=== PATIENT | female | born 1980 | race African-American/Black ===

== ENCOUNTER → 2017-01-10 | Outpatient (CLI) | payer OTHER | LOC: RAD 16:01 | PROVIDERS: ATTEND Student in an Organized Health Care Education/Training Program | DX: K59.09 Other constipation (principal); R10.9 Unspecified abdominal pain | CPT/HCPCS: 74000 ==

== ENCOUNTER 2017-03-28 09:34 | Emergency (ER) | payer BC, OTHER ==
--- NOTE | 2017-03-28 10:13 | ER Document Report ---
ED General - General Mode of Arrival: Ambulatory Information source: Patient TRAVEL OUTSIDE OF THE U.[place]. IN LAST 30 DAYS: No - HPI Onset: This morning - Refer to HPI notes Similar symptoms previously: No Recently seen / treated by doctor: No <HENNY SANTO - Last Filed: 03/28/17 10:19> <YANELIS SEXTON - Last Filed: 03/28/17 15:23> - General Chief Complaint: Flank Pain Stated Complaint: FLANK PAIN Time Seen by Provider: 03/28/17 09:42 Notes: Patient is a 37-year-old female presenting to the emergency department for left flank pain. Patient states her pain was onset at 7:30 this morning. Patient states that her pain "feels like a contraction but it is not lighting up." Patient also describes it as sharp pain that came on suddenly. Patient denies any cramping. Patient has a history of gastric sleeve. Patient denies any history of kidney stones. Patient's last menstrual period was 03/16/2017. ( HENNY SANTO) - Related Data Allergies/Adverse Reactions: Penicillins Allergy (Mild, Verified 02/12/14 16:03) Hives Past Medical History - General Information source: Patient - Social History Smoking Status: Never Smoker Cigarette use (# per day): No Chew tobacco use (# tins/day): No Frequency of alcohol use: None Drug Abuse: None Family History: None Patient has suicidal ideation: No Patient has homicidal ideation: No - Medical History Medical History: Negative Past Surgical History: Reports: Hx Abdominal Surgery - gastric sleeve 09/18/2016 - Immunizations Hx Diphtheria, Pertussis, Tetanus Vaccination: Yes <HENNY SANTO - Last Filed: 03/28/17 10:19> Review of Systems - Review of Systems Constitutional: No symptoms reported EENT: No symptoms reported Cardiovascular: No symptoms reported Respiratory: No symptoms reported Gastrointestinal: No symptoms reported Genitourinary: See HPI, Flank pain Female Genitourinary: No symptoms reported Musculoskeletal: See HPI Skin: No symptoms reported Hematologic/Lymphatic: No symptoms reported Neurological/Psychological: No symptoms reported -: Yes All other systems reviewed and negative <HENNY SANTO - Last Filed: 03/28/17 10:19> Physical Exam - Vital signs Interpretation: Normal - General General appearance: Appears well, Alert In distress: Mild - HEENT Head: Normocephalic, Atraumatic Eyes: Normal Pupils: PERRL Mucous membranes: Moist - Respiratory Respiratory status: No respiratory distress Chest status: Tender - left rib pain tenderness to palpation Breath sounds: Normal Chest palpation: Normal - Cardiovascular Rhythm: Regular Heart sounds: Normal auscultation Murmur: No - Abdominal Inspection: Normal Distension: No distension Bowel sounds: Normal Tenderness: Nontender Organomegaly: No organomegaly - Back Back: Tender - left lateral flank tenderness to palpation, Other - no CVA percussion tenderness - Extremities General upper extremity: Normal inspection, Normal ROM, Normal strength General lower extremity: Normal inspection, Normal ROM, Normal strength - Neurological Neuro grossly intact: Yes Cognition: Normal Orientation: AAOx4 [place] Coma Scale Eye Opening: Spontaneous [place] Coma Scale Verbal: Oriented [place] Coma Scale Motor: Obeys Commands [place] Coma Scale Total: 15 Speech: Normal - Psychological Associated symptoms: Normal affect, Normal mood - Skin Skin Temperature: Warm Skin Moisture: Dry <HENNY SANTO - Last Filed: 03/28/17 10:19> <YANELIS SEXTON - Last Filed: 03/28/17 15:23> - Vital signs Vitals: Temp Pulse Resp BP Pulse Ox 97.5 F 69 16 108/77 96 03/28/17 09:38 03/28/17 09:38 03/28/17 09:38 03/28/17 09:38 03/28/17 09:38 Course <HENNY SANTO - Last Filed: 03/28/17 10:19> - Laboratory Result Diagrams: 03/28/17 09:44 03/28/17 09:44 - Diagnostic Test Radiology reviewed: Image reviewed, Reports reviewed - Scan is read as possible mesenteric adenitis, no other abnormalities. <YANELIS SEXTON - Last Filed: 03/28/17 15:23> - Re-evaluation Re-evalutation: 03/28/17 15:19 The patient was seen here on 02/12/2014 with similar left flank pain and hematuria and a negative CT scan. Discussing the possibilities of the ongoing hematuria, the patient now thinks her last period was February 14, 2017 not March 16, 2017. Her test was negative. She does not remember being advised to follow-up with Dr. Hines the urologist, when she was seen here 3 years ago. She never did follow-up. (YANELIS SEXTON) - Vital Signs Vital signs: Temp Pulse Resp BP Pulse Ox 97.5 F 69 16 108/77 96 03/28/17 09:38 03/28/17 09:38 03/28/17 09:38 03/28/17 09:38 03/28/17 09:38 - Laboratory Laboratory results interpreted by me: 03/28/17 03/28/17 03/28/17 09:44 09:44 12:15 Hgb 11.1 L Hct 35.1 L MCHC 31.5 L Chloride 109 H Albumin 3.3 L Urine Ketones 80 H Urine Blood LARGE H Discharge <HENNY SANTO - Last Filed: 03/28/17 10:19> <YANELIS SEXTON - Last Filed: 03/28/17 15:23> - Discharge Clinical Impression: Flank pain Condition: Stable Disposition: HOME, SELF-CARE Additional Instructions: Flank Pain: We weren't able to prove an exact cause for your flank pain. Pain in the flank can be caused by a muscle strain or spasm. Sometimes a kidney stone causes pain, but can't be found on our tests. Infection in the kidney should be evident on a urine test. Early shingles can occasionally cause flank pain, without the rash that proves the diagnosis. On rare occasions, disease of the pancreas, aorta, spleen, or colon can create pain in the flank. At this time, there's no evidence of a dangerous condition, and it seems safe for you to be at home. If the pain goes away and does not come back, no further testing will be needed. If pain persists, or becomes more severe, we may need to repeat some tests or order additional new testing. Blood in the urine, urgency to urinate frequently, and pain that radiates to the groin can indicate a kidney stone. Fever may mean that the pain is due to infection, either of the kidney or the colon (diverticulitis). If your pain is early shingles, you should develop an eruption of blisters in the painful area within a few days. Call the doctor or return if you have pain that is spreading or becoming more severe, pain that does not resolve with time, fever, or any other new symptoms. //////////////////////////////////////////////////////////////////////////////// //////////////////////////////////////////////////////////// Your evaluation today suggests your pain is most likely musculoskeletal in origin Continue urine may likely be due to you regarding your period. Take Tylenol and Aleve or Motrin for pain as needed. Follow-up with your primary care provider to recheck your urine to be certain there is no blood in the urine. RETURN TO THE EMERGENCY ROOM IF ANY NEW OR WORSENING SYMPTOMS. Referrals: RADHA WALLIS, [Primary Care Provider] - Follow up as needed Scribe Attestation: 03/28/17 15:23 I personally performed the services described in the documentation, reviewed and edited the documentation which was dictated to the scribe in my presence, and it accurately records my words and actions. (YANELIS SEXTON) Scribe Documentation - Scribe Written by Sherri:: Sherri Washburn 03/28/17 10:28 acting as scribe for :: Chava <HENNY SANTO - Last Filed: 03/28/17 10:19>
[2017-03-28 11:00] LABS: ABSOLUTE EOSINOPHILS # (AUTO) 0.1 10^3/uL (0.0-0.6); ABSOLUTE LYMPHOCYTES (AUTO) 1.9 10^3/uL (0.5-4.7); ABSOLUTE MONOCYTES (AUTO) 0.5 10^3/uL (0.1-1.4); ABSOLUTE NEUT (AUTO) 6.2 10^3/uL (1.7-8.2); BASOPHILS % (AUTO) 0.4 % (0-2); EOSINOPHILS % (AUTO) 1.2 % (0-6); HEMATOCRIT 35.1 % (36.0-47.0); HEMOGLOBIN 11.1 g/dL (12.0-15.5); HGB HCT DIFFERENCE -1.8; LYMPHOCYTES % (AUTO) 22.2 % (13-45); MEAN CORPUSCULAR HEMOGLOBIN 28.2 pg (27.0-33.4); MEAN CORPUSCULAR HGB CONC 31.5 g/dL (32.0-36.0); MEAN CORPUSCULAR VOLUME 89 fl (80-97); MONOCYTES % (AUTO) 5.4 % (3-13); RED BLOOD COUNT 3.93 10^6/uL (3.72-5.28); SEGMENTED NEUTROPHILS % (AUTO) 70.8 % (42-78); WHITE BLOOD COUNT 8.7 10^3/uL (4.0-10.5)
[2017-03-28 11:16] LABS: ALANINE AMINOTRANSFERASE 26 U/L (9-52); ALBUMIN 3.3 g/dL (3.5-5.0); ALKALINE PHOSPHATASE 64 U/L (38-126); ANION GAP 8 (5-19); ASPARTATE AMINO TRANSFERASE 17 U/L (14-36); BILIRUBIN,DIRECT 0.3 mg/dL (0.0-0.4); BILIRUBIN,TOTAL 0.8 mg/dL (0.2-1.3); BLOOD UREA NITROGEN 13 mg/dL (7-20); CALCIUM 9.6 mg/dL (8.4-10.2); CARBON DIOXIDE 23 mmol/L (22-30); CHLORIDE 109 mmol/L (98-107); CREATININE RESULT 0.64 mg/dL (0.52-1.25); GLUCOSE 108 mg/dL (75-110); POTASSIUM 3.9 mmol/L (3.6-5.0); SODIUM 139.5 mmol/L (137-145); TOTAL PROTEIN 6.4 g/dL (6.3-8.2)
[2017-03-28] MEDS ORDERED: NORMAL SALINE 1000 ML 1,000 ML IV ONE (11:21)
[2017-03-28] MEDS ORDERED: KETOROLAC TROMETHAMINE INJ/PF 30 MG/1 ML SDV IV ONE (12:21)
[2017-03-28] MEDS ORDERED: FAMOTIDINE INJ/PF 20 MG/2 ML SDV IV ONE (12:21)
[2017-03-28 13:01] LABS: APPEARANCE,URINE SLIGHTLY-CLOUDY; BILIRUBIN,URINE NEGATIVE (NEGATIVE); GLUCOSE, URINE NEGATIVE (NEGATIVE); KETONES,URINE 80 mg/dL (NEGATIVE); LEUKOCYTE ESTERASE,URINE NEGATIVE (NEGATIVE); NITRITE,URINE NEGATIVE (NEGATIVE); PROTEIN,URINE NEGATIVE (NEGATIVE); URINE SPECIFIC GRAVITY 1.014; UROBILINOGEN,URINE NEGATIVE mg/dL (<2.0)
--- NOTE | 2017-03-28 14:50 | RADIOLOGY REPORT (SQ) ---
EXAM DESCRIPTION: CT LTD RENAL STONE PROTOCOL ON COMPLETED DATE/TIME: 03/28/2017 1:59 pm REASON FOR STUDY: LEFT FLANK PAIN, HEMATURIA COMPARISON: None. TECHNIQUE: CT scan of the abdomen and pelvis performed without intravenous or oral contrast. Images reviewed with lung, soft tissue, and bone windows. Reconstructed coronal and sagittal MPR images revi ewed. All images stored on PACS. All CT scanners at this facility use dose modulation, iterative reconstruction, and/or weight based d osing when appropriate to reduce radiation dose to as low as reasonably achievable (ALARA). [facility]: Dose Right [facility]: CareDose [facility]: Dose Right [facility]: Teradose 4D [facility]: DTVCast RADIATION DOSE: 11.33mGy. LIMITATIONS: None. FINDINGS: LOWER CHEST: No significant findings. No nodules or infiltrates. NON-CONTRASTED LIVER, SPLEEN, ADRENALS: Evaluation limited by lack of IV contrast. No identified sign ificant masses. PANCREAS: No masses. No peripancreatic inflammatory changes. GALLBLADDER: No identified stones by CT criteria. No inflammatory changes to suggest cholecystitis. RIGHT KIDNEY AND URETER: No suspicious masses. Assessment limited by lack of IV contrast. No signif icant calcifications. No hydronephrosis or hydroureter. LEFT KIDNEY AND URETER: No suspicious masses. Assessment limited by lack of IV contrast. No signifi cant calcifications. No hydronephrosis or hydroureter. AORTA AND RETROPERITONEUM: No aneurysm. Several retroperitoneal and mesenteric lymph nodes are prese nt. These are generally small PE BOWEL AND PERITONEAL CAVITY: No obvious masses or inflammatory changes. No free fluid. APPENDIX: Not identified. PELVIS, BLADDER, AND ABDOMINAL WALL:Urinary bladder and uterus are normal. There is no adnexal mass or fluid collection. BONES: No significant findings. OTHER: No other significant finding. IMPRESSION: 1. No urinary pathology is appreciated. 2. Possible mesenteric adenitis. TECHNICAL DOCUMENTATION: JOB ID: [id number] Quality ID # [id number]: Final reports with documentation of one or more dose reduction techniques (e.g., Au tomated exposure control, adjustment of the mA and/or kV according to patient size, use of iterative reconstruction technique) 2010 [employer]- All Rights Reserved
[2017-03-28 15:36] VITALS: BP 106/62
== END 2017-03-28 15:30 | disposition home or self-care (01) ==
LOC: ER 09:34
DX: R10.9 Unspecified abdominal pain (principal); R31.9 Hematuria, unspecified; Z88.0 Allergy status to penicillin
CPT/HCPCS: 99284; 96361; 96374; 96375; 36415; 84703; 85025; 80053; 81001; 76380; J1885; J7030; S0028

== ENCOUNTER 2017-03-31 11:57 | Emergency (ER) | payer BC ==
[2017-03-31] MEDS ORDERED: KETOROLAC TROMETHAMINE INJ/PF 30 MG/1 ML SDV IV ONE (12:13)
[2017-03-31] MEDS ORDERED: NORMAL SALINE 1000 ML 1,000 ML IV ONE ×2 (12:13→17:57)
--- NOTE | 2017-03-31 12:15 | ER Document Report ---
ED Medical Screen (RME) - General Chief Complaint: Flank Pain Stated Complaint: Left flank pain Time Seen by Provider: 03/31/17 12:07 Mode of Arrival: Wheelchair Information source: Patient TRAVEL OUTSIDE OF THE [place] IN LAST 30 DAYS: No - HPI Patient complains to provider of: Left flank pain Onset: Other - pt seen here 3 days ago for same issue with neg w/u at that time (including CT)- states pain has recurred. - Related Data Allergies/Adverse Reactions: Penicillins Allergy (Mild, Verified 03/31/17 12:02) Hives Past Medical History - Social History Chew tobacco use (# tins/day): No Frequency of alcohol use: None Drug Abuse: None Renal/ Medical History: Denies: Hx Peritoneal Dialysis Past Surgical History: Reports: Hx Abdominal Surgery - gastric sleeve 09/18/2016 - Immunizations Hx Diphtheria, Pertussis, Tetanus Vaccination: Yes Physical Exam - Vital signs Vitals: Temp Pulse Resp BP Pulse Ox 98.1 F 63 16 141/84 H 100 03/31/17 12:02 03/31/17 12:02 03/31/17 12:02 03/31/17 12:02 03/31/17 12:02 Course - Vital Signs Vital signs: Temp Pulse Resp BP Pulse Ox 98.1 F 63 16 141/84 H 100 03/31/17 12:02 03/31/17 12:02 03/31/17 12:02 03/31/17 12:02 03/31/17 12:02
[2017-03-31 13:01] LABS: ABSOLUTE BASOPHILS # (AUTO) 0.1 10^3/uL (0.0-0.2); ABSOLUTE LYMPHOCYTES (AUTO) 1.4 10^3/uL (0.5-4.7); ABSOLUTE MONOCYTES (AUTO) 0.4 10^3/uL (0.1-1.4); ABSOLUTE NEUT (AUTO) 5.4 10^3/uL (1.7-8.2); BASOPHILS % (AUTO) 1.2 % (0-2); EOSINOPHILS % (AUTO) 0.7 % (0-6); HEMATOCRIT 39.2 % (36.0-47.0); HEMOGLOBIN 12.6 g/dL (12.0-15.5); HGB HCT DIFFERENCE -1.4; LYMPHOCYTES % (AUTO) 19.3 % (13-45); MEAN CORPUSCULAR HEMOGLOBIN 28.7 pg (27.0-33.4); MEAN CORPUSCULAR HGB CONC 32.2 g/dL (32.0-36.0); MEAN CORPUSCULAR VOLUME 89 fl (80-97); MONOCYTES % (AUTO) 5.6 % (3-13); RED BLOOD COUNT 4.39 10^6/uL (3.72-5.28); RED CELL DISTRIBUTION WIDTH 13.1 % (11.5-14.0); SEGMENTED NEUTROPHILS % (AUTO) 73.2 % (42-78); WHITE BLOOD COUNT 7.3 10^3/uL (4.0-10.5)
[2017-03-31 13:41] LABS: ALANINE AMINOTRANSFERASE 23 U/L (9-52); ALKALINE PHOSPHATASE 65 U/L (38-126); ANION GAP 11 (5-19); ASPARTATE AMINO TRANSFERASE 22 U/L (14-36); BILIRUBIN,DIRECT 0.2 mg/dL (0.0-0.4); BLOOD UREA NITROGEN 11 mg/dL (7-20); CALCIUM 9.6 mg/dL (8.4-10.2); CARBON DIOXIDE 22 mmol/L (22-30); CHLORIDE 103 mmol/L (98-107); CREATININE RESULT 0.79 mg/dL (0.52-1.25); GLUCOSE 87 mg/dL (75-110); LIPASE 89.9 U/L (23-300); POTASSIUM 4.2 mmol/L (3.6-5.0); SODIUM 136.3 mmol/L (137-145); TOTAL PROTEIN 7.2 g/dL (6.3-8.2)
[2017-03-31] MEDS ORDERED: HYDROCODONE/ACETAMINOPHEN 5-325 MG TABLET PO ONE ×2 (15:50→20:19)
--- NOTE | 2017-03-31 15:52 | ER Document Report ---
ED GI/ - General Mode of Arrival: Wheelchair Information source: Patient TRAVEL OUTSIDE OF THE [place] IN LAST 30 DAYS: No <JO ARRIOLA - Last Filed: 03/31/17 19:22> <DANYELLE CAPPS - Last Filed: 03/31/17 20:23> - General Chief Complaint: Flank Pain Stated Complaint: RIGHT SIDE FLANK PAIN Time Seen by Provider: 03/31/17 12:07 Notes: Patient is a 37-year-old female who presents to the ER today for left flank pain radiating around her left side. He was here on the first, 3 days ago and had a CAT scan of the abdomen and pelvis as well as a KUB x-ray performed which did not note any acute pathology including a kidney stone. She does not have a history of kidney stones. She denies any dysuria, hematuria, nausea, vomiting, diarrhea. (JO ARRIOLA) - Related Data Allergies/Adverse Reactions: Penicillins Allergy (Mild, Verified 03/31/17 12:02) Hives Past Medical History - General Information source: Patient - Social History Smoking Status: Never Smoker Chew tobacco use (# tins/day): No Frequency of alcohol use: None Drug Abuse: None Family History: None Patient has suicidal ideation: No Patient has homicidal ideation: No Renal/ Medical History: Denies: Hx Peritoneal Dialysis Past Surgical History: Reports: Hx Abdominal Surgery - gastric sleeve 09/18/2016 - Immunizations Hx Diphtheria, Pertussis, Tetanus Vaccination: Yes <JO ARRIOLA - Last Filed: 03/31/17 19:22> Review of Systems - Review of Systems Constitutional: No symptoms reported EENT: No symptoms reported Cardiovascular: No symptoms reported Respiratory: No symptoms reported Gastrointestinal: No symptoms reported Genitourinary: See HPI Female Genitourinary: No symptoms reported Musculoskeletal: No symptoms reported Skin: No symptoms reported Hematologic/Lymphatic: No symptoms reported Neurological/Psychological: No symptoms reported <JO ARRIOLA - Last Filed: 03/31/17 19:22> Physical Exam <JO ARRIOLA - Last Filed: 03/31/17 19:22> <DANYELLE CAPPS - Last Filed: 03/31/17 20:23> - Vital signs Vitals: Temp Pulse Resp BP Pulse Ox 98.1 F 63 16 141/84 H 100 06/04/17 12:02 03/31/17 12:02 03/31/17 12:02 03/31/17 12:02 03/31/17 12:02 - Notes Notes: PHYSICAL EXAMINATION: GENERAL: uncomfortable, but in no acute distress. HEAD: Atraumatic, normocephalic. EYES: Pupils equal round and reactive to light, extraocular movements intact, sclera anicteric, conjunctiva are normal. NECK: Normal range of motion, supple without lymphadenopathy LUNGS: CTAB and equal. No wheezes rales or rhonchi. HEART: Regular rate and rhythm without murmurs ABDOMEN: Soft, left sided tenderness. No guarding, no rebound BACK: no vertebral tenderness, normal ROM GI/: left CVA tenderness EXTREMITIES: Normal range of motion, no pitting edema. No cyanosis. NEUROLOGICAL: Cranial nerves grossly intact. Normal sensory/motor exams. PSYCH: Normal mood, normal affect. SKIN: Warm, Dry, normal turgor, no rashes or lesions noted (JO ARRIOLA) Course - Laboratory Result Diagrams: 03/31/17 12:43 03/31/17 12:43 <JO ARRIOLA - Last Filed: 03/31/17 19:22> - Laboratory Result Diagrams: 03/31/17 12:43 03/31/17 12:43 <DANYELLE CAPPS - Last Filed: 03/31/17 20:23> - Re-evaluation Re-evalutation: 03/31/17 19:17 pt has blood in her urinalysis both today and 3 days ago. 03/31/17 19:23 care has been handed over to SHIRIN Ace (JO ARRIOLA) 03/31/17 20:14 renal ultrasound is negative, will refer to jess theodore her PCP and urologist. test is negative. (DANYELLE CAPPS) - Vital Signs Vital signs: Temp Pulse Resp BP Pulse Ox 98.1 F 63 16 141/84 H 100 03/31/17 12:02 03/31/17 12:02 03/31/17 12:02 03/31/17 12:02 03/31/17 12:02 - Laboratory Laboratory results interpreted by me: 03/31/17 03/31/17 12:43 16:26 Sodium 136.3 L Urine Ketones 80 H Urine Blood MODERATE H Discharge <HERBERTHSOLOMONJO - Last Filed: 03/31/17 19:22> <JEFRYCAMERONDANYELLE - Last Filed: 03/31/17 20:23> - Discharge Clinical Impression: left flank pain, Microscopic hematuria Condition: Good Disposition: HOME, SELF-CARE Instructions: Oral Narcotic Medication ([facility]), Toradol Injection ([facility]), Flank Pain ([facility]), Hematuria ([facility]) Additional Instructions: warm compress see urologist for follow up see jess theodore for follow up to er if worse Prescriptions: Hydrocodone Bit/Acetaminophen [Hydrocodon-Acetaminophen 5-325] 1 each PO Q4HP PRN #15 tablet PRN Reason: Forms: Return to Work Referrals: JESS WALLIS DO [Primary Care Provider] - Follow up as needed EVIE HENNING MD [CIGAR BINDER] - Follow up as needed
[2017-03-31 17:23] LABS: APPEARANCE,URINE SLIGHTLY-CLOUDY; BILIRUBIN,URINE NEGATIVE (NEGATIVE); GLUCOSE, URINE NEGATIVE (NEGATIVE); KETONES,URINE 80 mg/dL (NEGATIVE); LEUKOCYTE ESTERASE,URINE NEGATIVE (NEGATIVE); NITRITE,URINE NEGATIVE (NEGATIVE); PROTEIN,URINE NEGATIVE (NEGATIVE); URINE SPECIFIC GRAVITY 1.023; UROBILINOGEN,URINE NEGATIVE mg/dL (<2.0)
--- NOTE | 2017-03-31 19:40 | RADIOLOGY REPORT (SQ) ---
EXAM DESCRIPTION: U/S RETROPERITON (RENAL/AORTA) COMPLETED DATE/TIME: 03/31/2017 6:54 pm REASON FOR STUDY: left flank pain, side pain, hematuria COMPARISON: CT 03/28/2017. TECHNIQUE: Dynamic and static grayscale images acquired of the kidneys and bladder and recorded on P ACS. Additional selected color Doppler and spectral images recorded. LIMITATIONS: None. FINDINGS: RIGHT KIDNEY: Normal size. Normal echogenicity. No solid or suspicious masses. No hydronep hrosis. No calcifications. LEFT KIDNEY: Normal size. Normal echogenicity. No solid or suspicious masses. No hydronephrosis. No calcifications. BLADDER: No masses. OTHER FINDINGS: No other significant finding. IMPRESSION: NORMAL RENAL AND BLADDER ULTRASOUND. TECHNICAL DOCUMENTATION: JOB ID: [id number] [employer]- All Rights Reserved
[2017-03-31 20:50] VITALS: BP 122/81
== END 2017-03-31 20:50 | disposition home or self-care (01) ==
LOC: ER 11:57
DX: R10.9 Unspecified abdominal pain (principal); R31.29 Other microscopic hematuria; Z87.442 Personal history of urinary calculi; Z88.0 Allergy status to penicillin
CPT/HCPCS: 99284; 96361; 96374; 36415; 87086; 83690; 84703; 85025; 80053; 81001; 76770; J1885; J7030

== ENCOUNTER 2017-07-15 10:29 | Emergency (ER) | payer BC, OTHER ==
--- NOTE | 2017-07-15 11:41 | ER Document Report ---
ED General - General Chief Complaint: Low Blood Pressure Stated Complaint: BLOOD PRESSURE PROBLEM Time Seen by Provider: 07/15/17 11:37 Mode of Arrival: Ambulatory Information source: Patient Notes: 37-year-old female presents with concerns for low blood pressure. Patient notes her blood pressure today was was in the 90s systolic, has been in the 80s over the past week and the patient had one episode of syncope, she notes she was seen by her primary care physician and lab work performed on Saturday. Patient denies any symptoms at all besides feeling lightheaded when she stands up. Patient today says the symptoms have improved she otherwise feels well TRAVEL OUTSIDE OF THE [place] IN LAST 30 DAYS: No - HPI Onset: Last week Onset/Duration: Intermittent Quality of pain: No pain Severity: Mild Pain Level: Denies Associated symptoms: Other Exacerbated by: Standing Relieved by: Sitting Similar symptoms previously: Yes Recently seen / treated by doctor: Yes - Related Data Allergies/Adverse Reactions: Penicillins Allergy (Mild, Verified 03/31/17 12:02) Hives NASID Allergy (Uncoded 07/15/17 10:52) Past Medical History - Social History Smoking Status: Never Smoker Cigarette use (# per day): No Chew tobacco use (# tins/day): No Smoking Education Provided: No Frequency of alcohol use: None Drug Abuse: None Family History: None Patient has suicidal ideation: No Renal/ Medical History: Denies: Hx Peritoneal Dialysis Past Surgical History: Reports: Hx Abdominal Surgery - gastric sleeve 09/18/2016 - Immunizations Hx Diphtheria, Pertussis, Tetanus Vaccination: Yes Review of Systems - Review of Systems Notes: REVIEW OF SYSTEMS: CONSTITUTIONAL : Denies fever, chills, or sweats. Denies recent illness. EENT: Denies eye, ear, throat, or mouth pain or symptoms. Denies nasal or sinus congestion or discharge. Denies throat, tongue, or mouth swelling or difficulty swallowing. CARDIOVASCULAR: Denies chest pain. Denies palpitations or racing or irregular heart beat. Denies ankle edema. RESPIRATORY: Denies cough, cold, or chest congestion. Denies shortness of breath, difficulty breathing, or wheezing. GASTROINTESTINAL: Denies abdominal pain or distention. Denies nausea, vomiting , or diarrhea. Denies blood in vomitus, stools, or per rectum. Denies black, tarry stools. Denies constipation. GENITOURINARY: Denies difficulty urinating, painful urination, burning, frequency, blood in urine, or discharge. FEMALE GENITOURINARY: Denies vaginal bleeding, heavy or abnormal periods, irregular periods. Denies vaginal discharge or odor. MUSCULOSKELETAL: Denies back or neck pain or stiffness. Denies joint pain or swelling. SKIN: Denies rash, lesions or sores. HEMATOLOGIC : Denies easy bruising or bleeding. LYMPHATIC: Denies swollen, enlarged glands. NEUROLOGICAL: Admits to dizziness when she stands PSYCHIATRIC: Denies anxiety or stress. Denies depression, suicidal ideation, or homicidal ideation. ALL OTHER SYSTEMS REVIEWED AND NEGATIVE. PHYSICAL EXAMINATION: GENERAL: Well-appearing, well-nourished and in no acute distress. HEAD: Atraumatic, normocephalic. EYES: Pupils equal round and reactive to light, extraocular movements intact, conjunctiva are normal. ENT: Nares patent, oropharynx clear without exudates. Moist mucous membranes. NECK: Normal range of motion, supple without lymphadenopathy LUNGS: Breath sounds clear to auscultation bilaterally and equal. No wheezes rales or rhonchi. HEART: Regular rate and rhythm without murmurs ABDOMEN: Soft, nontender, nondistended abdomen. No guarding, no rebound. No masses appreciated. Female : deferred Musculoskeletal: Normal range of motion, no pitting or edema. No cyanosis. NEUROLOGICAL: Cranial nerves grossly intact. Normal speech, normal gait. Normal sensory, motor exams PSYCH: Normal mood, normal affect. SKIN: Warm, Dry, normal turgor, no rashes or lesions noted. Dictation was performed using [employer] voice recognition software Physical Exam - Vital signs Vitals: Temp Pulse Resp BP Pulse Ox 98.1 F 78 16 99/63 L 100 07/15/17 10:53 07/15/17 10:53 07/15/17 10:53 07/15/17 10:53 07/15/17 10:53 Course - Re-evaluation Re-evalutation: 07/15/17 11:43 Dr Aceves office consulted regarding labs 07/15/17 12:40 Patient's blood pressure today was stable she otherwise looks well is in no distress I did obtain patient's blood work from her primary care physician, she has no life-threatening issues noted. I discussed her findings of elevated LDL with her as well and suggested she follow-up with her primary care physician and increase salt intake After performing a Medical Screening Examination, I estimate there is LOW risk for INTRACRANIAL HEMORRHAGE, ISCHEMIC CVA, MALIGNANT DYSRHYTHMIA, ACUTE CORONARY SYNDROME, MENINGITIS, PULMONARY EMBOLISM, or SEPSIS thus I consider the discharge disposition reasonable. I have reevaluated this patient multiple times and no significant life threatening changes are noted. The patient and I have discussed the diagnosis and risks, and we agree with discharging home with close follow-up with the understanding that symptoms and presentations can change. We also discussed returning to the Emergency Department immediately if new or worsening symptoms occur. We have discussed the symptoms which are most concerning (e.g., changing or worsening pain, weakness, vomiting, fever) that necessitate immediate return. - Vital Signs Vital signs: Temp Pulse Resp BP Pulse Ox 98.0 F 82 18 106/80 100 07/15/17 12:28 07/15/17 12:28 07/15/17 12:28 07/15/17 12:28 07/15/17 12:28 Discharge - Discharge Clinical Impression: Elevated LDL cholesterol level Low blood pressure Qualifiers: Hypotension type: unspecified hypotension type Qualified Code(s): I95.9 - Hypotension, unspecified Condition: Stable Disposition: HOME, SELF-CARE Additional Instructions: Your blood pressure at this time does not know of any significant abnormality, your lab work was normal. Please increase the salt in your diet to increase her blood pressure and hydrate extensively Referrals: RADHA WALLIS, [NO LOCAL MD] - Follow up tomorrow
[2017-07-15 12:29] VITALS: BP 106/80
== END 2017-07-15 12:29 | disposition home or self-care (01) ==
LOC: ER 10:29
DX: I95.9 Hypotension, unspecified (principal); R55 Syncope and collapse; E78.00 Pure hypercholesterolemia, unspecified; Z88.0 Allergy status to penicillin; Z88.8 Allergy status to other drugs, medicaments and biological substances
CPT/HCPCS: 99284

== ENCOUNTER 2018-11-05 21:55 | Emergency (ER) | payer BC, MEDICAID ==
[2018-11-06] MEDS ORDERED: LIDOCAINE 1% INJ-PF (10 MG/ML) 30 ML SDV NEB ONE (00:50)
[2018-11-06] MEDS ORDERED: IPRATROPIUM/ALBUTEROL 0.5-2.5 MG/3 ML AMPUL NEB ONE (00:50)
--- NOTE | 2018-11-06 03:10 | RADIOLOGY REPORT (SQ) ---
EXAM DESCRIPTION: XR CHEST 2 VIEWS COMPLETED DATE/TME: 11/06/2018 00:51 CLINICAL HISTORY: 38 years, Female, sob COMPARISON: 10/03/2016 chest x-ray NUMBER OF VIEWS: 2 TECHNIQUE: Frontal and lateral views of the chest LIMITATIONS: None. FINDINGS: The heart size is normal. Lungs are hyperinflated but clear. No pneumothorax IMPRESSION: Underlying hyperinflation. Lungs are clear copyright 2011 [employer] All Rights Reserved
[2018-11-06] MEDS ORDERED: DEXAMETHASONE 4 MG TABLET PO ONE (03:28)
[2018-11-06] MEDS ORDERED: ONDANSETRON 4 MG TAB.RAPDIS PO ONE (03:28)
[2018-11-06] MEDS ORDERED: ALBUTEROL SULFATE HFA (90 MCG/PUFF) 8 GM MDI (1 MDI/ER DISP) IH ONE (03:28)
--- NOTE | 2018-11-06 03:33 | ER Document Report ---
ED General - General Chief Complaint: Shortness Of Breath Stated Complaint: DIFFICULTY BREATHING Time Seen by Provider: 11/06/18 00:43 TRAVEL OUTSIDE OF THE [place] IN LAST 30 DAYS: No - HPI Patient complains to provider of: Difficulty breathing Notes: Patient coming in for cough difficulty breathing ongoing for the last 2 days. Patient states difficult time staying this feels like the air is getting trapped within your lungs. Patient does have a history of smoking in the past. Patient states currently is not smoking. Denies any recent travel denies any chest pain denies a any fevers chills vomiting diarrhea. Patientstates slight nause. - Related Data Allergies/Adverse Reactions: Penicillins Allergy (Mild, Verified 03/31/17 12:02) Hives NASID Allergy (Uncoded 07/15/17 10:52) Past Medical History - Social History Smoking Status: Unknown if Ever Smoked Family History: None Patient has suicidal ideation: No Patient has homicidal ideation: No Renal/ Medical History: Denies: Hx Peritoneal Dialysis Past Surgical History: Reports: Hx Abdominal Surgery - gastric sleeve 09/18/2016 - Immunizations Hx Diphtheria, Pertussis, Tetanus Vaccination: Yes Review of Systems - Review of Systems Constitutional: No symptoms reported EENT: No symptoms reported Cardiovascular: No symptoms reported Respiratory: Short of breath Gastrointestinal: No symptoms reported Genitourinary: No symptoms reported Female Genitourinary: No symptoms reported Musculoskeletal: No symptoms reported Skin: No symptoms reported Hematologic/Lymphatic: No symptoms reported Neurological/Psychological: No symptoms reported -: Yes All other systems reviewed and negative Physical Exam - Vital signs Vitals: Temp Pulse Resp BP Pulse Ox 98.5 F 78 19 115/73 99 11/05/18 22:17 11/05/18 22:17 11/05/18 22:17 11/05/18 22:17 11/05/18 22:17 Interpretation: Normal - General General appearance: Appears well, Alert - HEENT Head: Normocephalic, Atraumatic Eyes: Normal Pupils: PERRL - Respiratory Respiratory status: No respiratory distress Chest status: Nontender Breath sounds: Wheezing - Scattered fine Chest palpation: Normal - Cardiovascular Rhythm: Regular Heart sounds: Normal auscultation Murmur: No - Abdominal Inspection: Normal Distension: No distension Bowel sounds: Normal Tenderness: Nontender Organomegaly: No organomegaly - Back Back: Normal, Nontender - Extremities General upper extremity: Normal inspection, Nontender, Normal color, Normal ROM, Normal temperature General lower extremity: Normal inspection, Nontender, Normal color, Normal ROM, Normal temperature, Normal weight bearing. No: Miguelina's sign - Neurological Neuro grossly intact: Yes Cognition: Normal Orientation: AAOx4 Herreid Coma Scale Eye Opening: Spontaneous Shirley Coma Scale Verbal: Oriented Herreid Coma Scale Motor: Obeys Commands Herreid Coma Scale Total: 15 Speech: Normal Motor strength normal: LUE, RUE, LLE, RLE Sensory: Normal - Psychological Associated symptoms: Normal affect, Normal mood - Skin Skin Temperature: Warm Skin Moisture: Dry Skin Color: Normal Course - Re-evaluation Re-evalutation: 11/06/18 03:54 Chest x-rays not revealing critical pathology. Possible viral bronchitis patient was given information about cough suppression will treat patient with a dose of Decadron and bronchodilator therapy. Patient agrees this plan will be discharged home. - Vital Signs Vital signs: Temp Pulse Resp BP Pulse Ox 98.5 F 78 19 115/73 99 11/05/18 22:17 11/05/18 22:17 11/05/18 22:17 11/05/18 22:17 11/05/18 22:17 Discharge - Discharge Clinical Impression: Viral bronchitis Condition: Good Disposition: HOME, SELF-CARE Instructions: Bronchitis With Bronchospasm (Wheezing) ([facility]), Upper Respiratory Illness ([facility]) Additional Instructions: Chest x-rays not show any signs of pneumonia. I would highly recommend we start treating you with bronchodilator therapy. Also recommend that we treat you with a one-time dose of steroid called Decadron. Recommend honey for cough suppression also recommend humidifier at home please make sure you follow-up with your primary care physician return to ER symptoms worsen. Prescriptions: Ondansetron HCl [Zofran 4 mg Tablet] 1 - 2 tab PO Q6 #30 tablet Referrals: AMERICA WALLIS MD [Primary Care Provider] - Follow up in 3-5 days
[2018-11-06 03:57] VITALS: BP 93/48
== END 2018-11-06 04:17 | disposition home or self-care (01) ==
LOC: ER 21:55
DX: J40 Bronchitis, not specified as acute or chronic (principal); B97.89 Other viral agents as the cause of diseases classified elsewhere; R06.02 Shortness of breath; R11.0 Nausea; R06.2 Wheezing; Z87.891 Personal history of nicotine dependence; Z88.0 Allergy status to penicillin; Z88.8 Allergy status to other drugs, medicaments and biological substances
CPT/HCPCS: 94640 ×2; 99285; 81025; 71046; J3490 ×2; S0119; J7620

== ENCOUNTER 2019-05-07 12:20 | Emergency (ER) | payer OTHER ==
[2019-05-07] MEDS ORDERED: CYCLOBENZAPRINE HCL 10 MG TABLET PO ONE (13:17)
[2019-05-07] MEDS ORDERED: ONDANSETRON 4 MG TAB.RAPDIS PO ONE (13:17)
[2019-05-07] MEDS ORDERED: KETOROLAC TROMETHAMINE 60 MG/2 ML SDV IM ONE (13:17)
[2019-05-07] MEDS ORDERED: LIDOCAINE 5% (700 MG) TRANSDERMAL ADH..PATCH TP ONE (13:18)
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
[2019-05-07 14:21] VITALS: BP 114/73
== END 2019-05-07 14:21 | disposition home or self-care (01) ==
LOC: ER 12:20
DX: T14.8XXA Other injury of unspecified body region, initial encounter (principal); M54.5 Low back pain; M25.561 Pain in right knee; M25.571 Pain in right ankle and joints of right foot; M25.50 Pain in unspecified joint; R51 Headache; V49.40XA Driver injured in collision with unspecified motor vehicles in traffic accident, initial encounter; Z98.84 Bariatric surgery status; Z88.0 Allergy status to penicillin; Z88.8 Allergy status to other drugs, medicaments and biological substances; Z87.891 Personal history of nicotine dependence
CPT/HCPCS: 99284; 96372; 72110; J1885; S0119

== ENCOUNTER 2019-12-23 19:10 | Emergency (ER) | payer MEDICAID, OTHER | END 2019-12-23 19:40 | disposition left against medical advice (07) | LOC: ER 19:10 | DX: Z53.21 Procedure and treatment not carried out due to patient leaving prior to being seen by health care provider (principal); J11.1 Influenza due to unidentified influenza virus with other respiratory manifestations ==

== ENCOUNTER 2020-06-13 20:03 | Emergency (ER) | payer OTHER, BC ==
[2020-06-13] MEDS ORDERED: KETOROLAC TROMETHAMINE INJ/PF 30 MG/1 ML SDV IM ONE (21:09)
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
[2020-06-13 23:24] VITALS: BP 110/70
== END 2020-06-13 23:23 | disposition home or self-care (01) ==
LOC: ER 20:03
DX: M25.552 Pain in left hip (principal); M25.512 Pain in left shoulder; M25.562 Pain in left knee; M79.10 Myalgia, unspecified site; V49.40XA Driver injured in collision with unspecified motor vehicles in traffic accident, initial encounter; Z88.0 Allergy status to penicillin; Z88.8 Allergy status to other drugs, medicaments and biological substances
CPT/HCPCS: 99284; 96372; 73502; 73060; 73564; 73030; J1885